=== PATIENT | female | born 1990 | race Caucasian/White ===

== ENCOUNTER 2018-08-30 01:09 | Emergency (ER) | payer MEDICAID, OTHER, SELFPAY ==
[~2018-08-30] VITALS: Ht 162.6 cm; Wt 83.9 kg
[2018-08-30] MEDS ORDERED: HYDROmorphone 2 MG/ML, 1ML IVPush STA (01:33)
[2018-08-30 01:42] LABS: BASOPHILS % (AUTO) 1 % (0-1); EOSINOPHILS # (AUTO) 0.37 x10^3/uL (0-0.4); EOSINOPHILS % (AUTO) 4 % (1-7); LYMPHOCYTES # (AUTO) 2.56 x10^3/uL (1-3.4); LYMPHOCYTES % (AUTO) 25 % (22-44); MD NO; MEAN CORPUSCULAR HEMOGLOBIN 29.7 pg (27.0-34.8); MEAN CORPUSCULAR HGB CONC 33.9 g/dL (32.4-35.8); MEAN CORPUSCULAR VOLUME 87.6 fL (80-100); MEAN PLATELET VOLUME 9.6 fL (7.4-10.4); MONOCYTES % (AUTO) 6 % (2-9); NEUTROPHILS % (AUTO) 65 % (42-75); PLATELET COUNT 269 x10^3/uL (130-400); RED BLOOD COUNT 4.81 x10^6/uL (3.82-5.3)
[2018-08-30 01:51] LABS: ALANINE AMINOTRANSFERASE 24 U/L (12-78); ALBUMIN 3.3 g/dL (3.4-5.0); ANION GAP 6 mmol/L (5-15); CALCIUM 8.1 mg/dL (8.5-10.1); CHLORIDE 110 mmol/L (98-107); CREATININE 0.63 mg/dL (0.55-1.02)
[2018-08-30 01:53] LABS: ALKALINE PHOSPHATASE 112 U/L (45-117); BILIRUBIN,TOTAL 0.4 mg/dL (0.2-1.0); TOTAL PROTEIN 7.2 g/dL (6.4-8.2)
[2018-08-30] MEDS ORDERED: HYDROmorphone 2 MG/ML, 1ML ONE (01:55)
--- NOTE | 2018-08-30 02:01 | NUR ---
PT MEDICATED PER OCT. UA TUBED TO LAB. PT TO [facility] AT THIS TIME.
[2018-08-30 02:09] LABS: HCG UR SG 1.019 (1.003-1.030); MICROSCOPIC AUTO
[2018-08-30 02:10] LABS: CULTURE INDICATED? YES
--- NOTE | 2018-08-30 02:26 | NUR ---
REPORT FROM YAZMIN GRAHAM.
[2018-08-30] MEDS ORDERED: CEFDINIR 300 MG CAPSULE PO STA (02:41)
[2018-08-30] MEDS ORDERED: CEFDINIR 300 MG CAPSULE ONE ×2 (03:03→03:30)
--- NOTE | 2018-08-30 03:10 | NUR ---
D/C PAPERWORK BEING REVIEWED WITH PT WHEN PT HAD EMESIS X1. PROVIDER NOTIFIED. PT TO HAVE ANTIEMETIC.
[2018-08-30] MEDS ORDERED: PROMETHAZINE 25 MG/ML, 1ML IM STA (03:11)
[2018-08-30] MEDS ORDERED: PROMETHAZINE 25 MG/ML, 1ML ONE (03:13)
--- NOTE | 2018-08-30 03:20 | NUR ---
PT RECIEVED PHENERGAN PER ORDERS, SEE EMAR. VSS. PT RESTING IN BED, WILL MONITOR FOR MED EFFECTIVENESS AND GIVE ABX WHEN PT NOT HAVING NAUSEA. FRIEND AT BEDSIDE. WARM BLANKET PROVIDED TO PT. CALL LIGHT IN REACH.
[2018-08-30 03:36] VITALS: BP 100/60
--- NOTE | 2018-08-30 03:39 | NUR ---
PT REPORTS RESOLVED NAUSEA. PT RECIEVED ABX PER ORDERS, SEE EMAR. WILL MONITOR FOR N/V BEFORE D/C.
== END 2018-08-30 03:52 | disposition home or self-care (01) ==
LOC: ED 02:07
DX: K80.20 Calculus of gallbladder without cholecystitis without obstruction (principal); N10 Acute pyelonephritis; Z90.49 Acquired absence of other specified parts of digestive tract
CPT/HCPCS: 36415; 76700; 80053; 81001; 81025; 83690; 85025; 87077; 87086; 96372; 96374; 99284; J1170; J2550

== ENCOUNTER 2019-07-30 22:24 | Emergency (ER) | payer OTHER ==
[~2019-07-30] VITALS: Ht 162.6 cm; Wt 101.2 kg
--- NOTE | 2019-07-30 23:15 | NUR ---
PT TO ROOM FROM LOBBY
[2019-07-30 23:17] LABS: BASOPHILS # (AUTO) 0.15 x10^3/uL (0-0.1); BASOPHILS % (AUTO) 2 % (0-1); EOSINOPHILS # (AUTO) 0.21 x10^3/uL (0-0.4); EOSINOPHILS % (AUTO) 2 % (1-7); LYMPHOCYTES # (AUTO) 2.55 x10^3/uL (1-3.4); LYMPHOCYTES % (AUTO) 28 % (22-44); MD NO; MEAN CORPUSCULAR HEMOGLOBIN 29.9 pg (27.0-34.8); MEAN CORPUSCULAR HGB CONC 33.6 g/dL (32.4-35.8); MEAN CORPUSCULAR VOLUME 89.1 fL (80-100); MEAN PLATELET VOLUME 9.6 fL (7.4-10.4); MONOCYTES # (AUTO) 0.65 x10^3/uL (0.2-0.8); MONOCYTES % (AUTO) 7 % (2-9); NEUTROPHILS # (AUTO) 5.69 x10^3/uL (1.8-6.8); NEUTROPHILS % (AUTO) 62 % (42-75); PLATELET COUNT 324 x10^3/uL (130-400); RED BLOOD COUNT 5.31 x10^6/uL (3.82-5.3); RED CELL DISTRIBUTION WIDTH 12.9 % (9.6-15.2)
[2019-07-30 23:26] LABS: ALBUMIN 3.9 g/dL (3.4-5.0); ANION GAP 4 mmol/L (5-15); CALCIUM 9.1 mg/dL (8.5-10.1); CHLORIDE 110 mmol/L (98-107); CREATININE 0.75 mg/dL (0.55-1.02)
--- NOTE | 2019-07-30 23:27 | NUR ---
THIS IS A 29 YO FEMALE COMING IN FOR DIZZINESS AND VISION BLURRING IN AND OUT SINCE 530PM. PATIENT STATES IT SLOWLY GOT WORSE, AND WENT HOME. PATIENT HAS BLOOD SHOT EYES, AND STATES THAT STARTED AROUND THE SAME TIME THE OTHER SYMPTOMS. PATIENT STATES SHE'S BEEN HAVING INTERMITTENT HEADACHES SINCE STARTING NEW JOB July. PATIENT CURRENTLY HAS 2/10 STERNAL CHEST PAIN WITH SOME INTERMITTENT SHORTNESS OF BREATH. PATIENT PLACED ON CIVIL STRUCTURAL DESIGNER, SINUS ARRHYTHMIA WITH MULTIPLE NON UNIFORM PVC'S NOTED. PATIENT ON CONTINUOUS SPO2 AT 98%, CYCLE BP Q1HR. CALL LIGHT IN REACH, DENIES NEEDS AT THIS TIME.
[2019-07-30 23:39] LABS: MICROSCOPIC NOT IND
[2019-07-30 23:41] LABS: CULTURE INDICATED? NO
[2019-07-31 00:32] VITALS: BP 118/75
== END 2019-07-31 00:45 | disposition home or self-care (01) ==
LOC: ED 23:59
DX: R42 Dizziness and giddiness (principal); R55 Syncope and collapse; R06.02 Shortness of breath; Z90.89 Acquired absence of other organs
CPT/HCPCS: 36415; 80048; 81003; 82040; 84703; 85025; 93005; 99283; 99284

== ENCOUNTER 2020-08-13 18:57 | Emergency (ER) | payer OTHER, MEDICAID ==
[~2020-08-13] VITALS: Ht 162.6 cm; Wt 107.0 kg
[2020-08-13 19:13] VITALS: BP 123/76
--- NOTE | 2020-08-13 20:24 | NUR ---
MANAGER UTILITY: PT WALKED BACK FROM LOBBY TO ROOM. NO ACUTE DISTRESS NOTED.
--- NOTE | 2020-08-13 20:30 | NUR ---
PATIENT WALKED BACK FROM TRIAGE WITH CHIEF C/O ABD PAIN THAT STARTED AROUND 0200 THIS MORNING. PATIENT REPORTS ONE EPISODE OF EMESIS, PATIENT STATES IT WAS JUST BILE. PATIENT DENIES DIARRHEA, NO PAIN WITH URINATION, DENIES FEVER. PATIENT STATES PAIN STARTS IN THE MIDDLE OF HER ABDOMEN AND RADIATES OVER TO THE RIGHT SIDE. VINAY AMADOR, ACCOMPANIED BY FRIEND, CALL LIGHT WITHIN REACH.
--- NOTE | 2020-08-13 20:38 | NUR ---
URINE SAMPLE COLLECTED AND WALKED TO LAB.
[2020-08-13 20:39] LABS: BASOPHILS % (AUTO) 1 % (0-1); EOSINOPHILS % (AUTO) 3 % (1-7); LYMPHOCYTES % (AUTO) 25 % (22-44); MEAN CORPUSCULAR HEMOGLOBIN 29.2 pg (27.0-34.8); MEAN CORPUSCULAR HGB CONC 34.2 g/dL (32.4-35.8); MEAN PLATELET VOLUME 9.5 fL (7.4-10.4); MONOCYTES % (AUTO) 9 % (2-9); NEUTROPHILS % (AUTO) 63 % (42-75); PLATELET COUNT 331 x10^3/uL (130-400); RED BLOOD COUNT 5.29 x10^6/uL (3.82-5.3); RED CELL DISTRIBUTION WIDTH 13.1 % (9.6-15.2)
[2020-08-13 20:40] LABS: MD NO
[2020-08-13 20:43] LABS: ALANINE AMINOTRANSFERASE 60 U/L (12-78); ALBUMIN 3.6 g/dL (3.4-5.0); ANION GAP 5 mmol/L (5-15); CALCIUM 8.9 mg/dL (8.5-10.1); CHLORIDE 109 mmol/L (98-107)
[2020-08-13 20:46] LABS: MICROSCOPIC NOT IND
[2020-08-13 20:48] LABS: ALKALINE PHOSPHATASE 192 U/L (45-117); BILIRUBIN,TOTAL 0.6 mg/dL (0.2-1.0); TOTAL PROTEIN 7.6 g/dL (6.4-8.2)
== END 2020-08-13 21:50 | disposition home or self-care (01) ==
LOC: ED 21:14
DX: K80.20 Calculus of gallbladder without cholecystitis without obstruction (principal); R10.11 Right upper quadrant pain; R11.2 Nausea with vomiting, unspecified; Z90.89 Acquired absence of other organs
CPT/HCPCS: 36415; 76700; 80053; 81003; 83690; 84703; 85025; 99284

== ENCOUNTER 2020-08-15 07:10 | Day surgery (SDC) | payer OTHER, MEDICAID ==
[~2020-08-15] VITALS: Ht 162.6 cm; Wt 105.3 kg
[2020-08-15] MEDS ORDERED: SODIUM CHLORIDE 0.9% 1,000ML IVBOLUS ONE (07:30)
[2020-08-15] MEDS ORDERED: MORPHINE SULFATE 4 MG/ML, 1ML IVPush PRN ×2 (07:30→13:00)
[2020-08-15] MEDS ORDERED: FAMOTIDINE 20 MG/2 ML IV ONE (07:30)
[2020-08-15] MEDS ORDERED: ONDANSETRON 2MG/ML, 2ML IVPush ONE (07:30)
--- NOTE | 2020-08-15 07:30 | NUR ---
PT IN HOSPITAL GOWN. PT PLACED ON VITALS MONITORS.
[2020-08-15 07:50] LABS: BASOPHILS % (AUTO) 1 % (0-1); EOSINOPHILS % (AUTO) 3 % (1-7); LYMPHOCYTES % (AUTO) 22 % (22-44); MEAN CORPUSCULAR HEMOGLOBIN 28.9 pg (27.0-34.8); MEAN CORPUSCULAR HGB CONC 33.4 g/dL (32.4-35.8); MEAN PLATELET VOLUME 9.3 fL (7.4-10.4); MONOCYTES % (AUTO) 7 % (2-9); NEUTROPHILS % (AUTO) 68 % (42-75); PLATELET COUNT 271 x10^3/uL (130-400)
[2020-08-15 08:02] LABS: ALBUMIN 3.2 g/dL (3.4-5.0); ANION GAP 6 mmol/L (5-15); CALCIUM 8.8 mg/dL (8.5-10.1); CHLORIDE 114 mmol/L (98-107)
[2020-08-15 08:05] LABS: ALANINE AMINOTRANSFERASE 49 U/L (12-78); ALKALINE PHOSPHATASE 184 U/L (45-117); BILIRUBIN,TOTAL 0.2 mg/dL (0.2-1.0); CREATININE 0.76 mg/dL (0.55-1.02); TOTAL PROTEIN 7.3 g/dL (6.4-8.2)
[2020-08-15 08:06] LABS: MD SCAN
[2020-08-15] MEDS ORDERED: ONDANSETRON 2MG/ML, 2ML ONE ×2 (08:06→15:00)
[2020-08-15] MEDS ORDERED: FAMOTIDINE 20 MG/2 ML ONE (08:06)
--- NOTE | 2020-08-15 09:19 | NUR ---
PT UP TO THE BATHROOM TO ATTEMPT TO PROVIDE URINE SAMPLE.
--- NOTE | 2020-08-15 09:29 | NUR ---
PT ABLE TO PROVIDE URINE SAMPLE.
[2020-08-15 09:50] LABS: MICROSCOPIC INDICATED
--- NOTE | 2020-08-15 10:41 | NUR ---
PT RESTING CALMLY IN BED. NO MENTION OF PAIN AT THIS TIME. WILL CONTINUE TO MONITOR.
--- NOTE | 2020-08-15 11:21 | NUR ---
PT REMAINS RESTING CALMLY IN BED. NO STATED NEEDS. PT AWAITING BED. PT UPDATED TO PLAN OF POSSIBLE SURGERY TODAY AND ADMIT TO SURG FLOOR AFTER PROCEDURE.
--- NOTE | 2020-08-15 12:01 | NUR ---
PT UP TO BATHROOM STEADILY ON OWN. PT SETTLED BACK INTO BED. VITALS STABLE. NO STATED NEEDS AT THIS TIME. PT REMAINS AWAITING ADMISSION
[2020-08-15] MEDS ORDERED: CEFOTETAN PMX 1GM/50ML 50 ML IVPB ONE (12:30)
[2020-08-15] MEDS ORDERED: SODIUM CHLORIDE 0.9% 1,000 ML IV ONE (13:00)
[2020-08-15] MEDS ORDERED: SODIUM CHLORIDE FLUSH 10ML SYR IVF PRN (13:00)
[2020-08-15] MEDS ORDERED: ONDANSETRON 2MG/ML, 2ML IVPush PRN (13:00)
--- NOTE | 2020-08-15 13:35 | NUR ---
PT RESTING CALMLY IN BED AT THIS TIME. ORDERED FLUIDS HANGING. NO STATED NEEDS AT THIS TIME. WILL CONTINUE TO MONITOR. CALL LIGHT WITHIN REACH.
[2020-08-15 14:16] VITALS: BP 113/69
[2020-08-15] MEDS ORDERED: CHLORHEXIDINE 15 ML UDC ONE (14:18)
[2020-08-15] MEDS ORDERED: BUPIVACAINE/PF 0.5% ONE (14:21)
[2020-08-15] MEDS ORDERED: EPINEPHRINE 1 MG/ML, 1ML ONE (14:21)
--- NOTE | 2020-08-15 14:24 | NUR ---
BREAK RN: REPORT CALLED INTO OR.
[2020-08-15] MEDS ORDERED: MEPERIDINE/PF 25MG/0.5ML IVPush PRN (14:30)
[2020-08-15] MEDS ORDERED: ALBUTEROL SULFATE 2.5 MG/3 ML NPPB PRN (14:30)
[2020-08-15] MEDS ORDERED: ACETAMINOPHEN 325 MG TABLET PO PRN (14:30)
[2020-08-15] MEDS ORDERED: hydrALAzine 20 MG/ML, 1ML IV PRN (14:30)
[2020-08-15] MEDS ORDERED: HYDROmorphone 1 MG/ML, 1ML INJ IVPush PRN (14:30)
[2020-08-15] MEDS ORDERED: CHLORHEXIDINE 15 ML UDC MM ONE (14:30)
[2020-08-15] MEDS ORDERED: MIDAZOLAM 1 MG/ML, 2ML IV PRN (14:30)
[2020-08-15] MEDS ORDERED: PROMETHAZINE 25 MG/ML, 1ML IVPush PRN (14:30)
[2020-08-15] MEDS ORDERED: LABETALOL 5MG/ML, 20ML IV PRN (14:30)
[2020-08-15 14:49] LABS: HCG UR SG 1.031 (1.003-1.030)
[2020-08-15] MEDS ORDERED: SUGAMMADEX 200 MG/2 ML IVPush ONE (15:00)
[2020-08-15] MEDS ORDERED: ROCURONIUM 10 MG/ML,10ML ONE (15:00)
[2020-08-15] MEDS ORDERED: PROPOFOL 10 MG/ML, 20ML ONE (15:00)
[2020-08-15] MEDS ORDERED: SUCCINYLCHOLINE 20 MG/ML, 10ML ONE (15:00)
[2020-08-15] MEDS ORDERED: KETOROLAC 30 MG/1 ML ONE (15:00)
[2020-08-15] MEDS ORDERED: CEFOTETAN 2 GM ONE (15:00)
[2020-08-15] MEDS ORDERED: OXYcodone 5 MG/5 ML ORAL.SOL UDC ONE (16:31)
[2020-08-15] MEDS ORDERED: FENTANYL PF 100 MCG/2ML ONE (16:31)
[2020-08-15] MEDS: OXYcodone 5 MG/5 ML ORAL.SOL UDC PO PRN ×2 (16:33→17:32)
[2020-08-15] MEDS ORDERED: ACETAMINOPHEN 650 MG/20.3 ML UDC ONE (16:35)
== END 2020-08-15 18:50 | disposition home or self-care (01) ==
LOC: ED 08:15 → OUT 08:15 → EDSTATUS 11:47 → EDIP 12:56 → UNDOADMIN 12:56 → ED 18:50 → OUT 18:50
PROVIDERS: ATTEND Emergency Medicine
DX: K80.12 Calculus of gallbladder with acute and chronic cholecystitis without obstruction (principal); E66.01 Morbid (severe) obesity due to excess calories; Z20.822 Contact with and (suspected) exposure to COVID-19; G43.909 Migraine, unspecified, not intractable, without status migrainosus; Z79.899 Other long term (current) drug therapy; Z88.8 Allergy status to other drugs, medicaments and biological substances; Z90.49 Acquired absence of other specified parts of digestive tract
CPT/HCPCS: 36415; 47562; 76700; 80053; 81001; 81025; 83690; 85025; 87635; 88304; 93005; 96361; 96365; 96375; 99285; J0171; J0330; J1885; J2405; J2704; J7030